=== PATIENT | male | born 1975 | race Caucasian/White ===

== ENCOUNTER → 2021-10-12 02:01 | Outpatient (CLI) | payer BC, SELFPAY ==
[2021-10-12 20:49] LABS: SARS-CoV-2 RNA PCR Positive
== END ==
PROVIDERS: PCP Family Medicine; Visit Provider Family Medicine
DX: U07.1 COVID-19 (principal)
CPT/HCPCS: C9803; U0003; U0005

== ENCOUNTER 2022-02-21 08:26 | Outpatient (CLI) | payer OTHER, SELFPAY ==
[2022-02-21 09:58] LABS: Alanine Aminotransferase 20 U/L (6-50); Albumin Level 4.2 g/dL (3.5-5.1); Alkaline Phosphatase 60 U/L (38-126); Anion Gap 4 mmol/L (8-16); Aspartate Amino Transferase 24 U/L (17-59); Bilirubin,Total 0.4 mg/dL (0.2-1.3); Blood Urea Nitrogen 17 mg/dL (9-20); Calcium 8.5 mg/dL (8.4-10.2); Carbon Dioxide 29 mmol/L (22-30); Chloride 107 mmol/L (98-107); Cholesterol 190 mg/dL (0-200); Estimated Glomerular Filt Rate > 60; Glucose 100 mg/dL (65-110); HDL Direct 47 mg/dL; Potassium 3.9 mmol/L (3.4-5.0); Sodium 140 mmol/L (137-145); Triglycerides 77 mg/dL (<150)
[2022-02-21 10:09] LABS: LDL Cholesterol Direct 100 mg/dL
== END 2022-02-21 08:27 | disposition home or self-care (01) ==
LOC: ANHLAB 08:30
PROVIDERS: PCP Family Medicine; Visit Provider Family Medicine
DX: E66.3 Overweight (principal); E78.5 Hyperlipidemia, unspecified
CPT/HCPCS: 36415; 80053; 80061

== ENCOUNTER 2022-08-13 08:23 | Emergency (ER) | payer OTHER, SELFPAY ==
--- NOTE | 2022-08-13 08:24 | ED.SKABFB ---
HPI - Skin/Abscess/Foreign Bdy General Chief complaint: Skin/Abscess/Foreign Body Stated complaint: RASH Time Seen by Provider: 08/13/22 08:24 Source: patient and RN notes reviewed History of Present Illness HPI narrative: Patient is a 47-year-old male who presents to urgent care with complaints of a rash to the chin, outside of the right ear, in the right abdomen. Patient states he noticed it on his face approximately 2-3 weeks ago it is and was not taking precautions such as changing tells until he suspected that it may be impetigo. 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 Patient has not tried anything [id number] for the rash. No other acute complaints. No acute distress noted. Patient aware of the plan of care. Some parts of this dictation were generated by voice recognition software and may contain typographical and/or grammatical inaccuracies. Related Data Allergies Allergy/AdvReac Type Severity Reaction Status Date / Time No Known Allergies Allergy Verified 08/13/22 08:44 Review of Systems Review of Systems: CONSTITUTIONAL: Denies fever, chills, or sweats. EYES: Denies visual changes, redness, or discharge. ENT: Denies rhinorrhea, congestion, sore throat, or otalgia. CARDIOVASCULAR: Denies chest pain, palpitations, or edema. RESPIRATORY: Denies cough or dyspnea. GASTROINTESTINAL: Denies abdominal pain, nausea, vomiting, or diarrhea. GENITOURINARY: Denies dysuria or hematuria. SKIN: Reports an itchy rash to the chin, to the right ear and to the right abdomen MUSCULOSKELETAL: Denies back pain, joint pain, or myalgia. NEUROLOGIC: Denies headache, numbness, or weakness. All other systems reviewed are negative, except as documented in HPI. [facility] Past Medical History Medical History History of broken nose (~1985) Surgical History Surgical History H/O knee surgery (~1983) [place] teeth extracted (~1998) Family History Family History Sibling Obesity Social History Social History Alcohol intake: current Drinks per week: 5 Comments At the time of my signature, I reviewed and agree with the nursing past medical, surgical, social, and family history. There is no relevant family history pertinent to the patient complaint. Exam Narrative: GENERAL: This is a well-nourished, well-developed patient, in no apparent distress. HEAD: normocephalic, atraumatic. EYES: PERRL. Sclera clear/white. Vision is grossly intact. EARS: External ears normal, draining vesicular/crusted dermatitis consistent with impetigo to the tragus of the right. Auditory canals clear and without drainage, TMs normal without perforation. Hearing grossly intact. NOSE: External nose normal with no obvious nasal discharge, nares without redness, no rhinorrhea. THROAT: Mucous membranes moist NECK: Neck supple CARDIOVASCULAR: Regular rate and rhythm without murmurs, gallops, or rubs. RESPIRATORY: Clear to auscultation. Breath sounds equal bilaterally. No wheezes, rales, or rhonchi. SKIN: Draining vesicular/crusted dermatitis consistent with impetigo to the chin. Circular blanching center dermatitis noted to the right abdomen more consistent with tinea NEURO: awake, alert, and oriented to person, place and time. There were no obvious focal neurologic abnormalities. EXTREMITIES: No clubbing, cyanosis, or edema. Course Course Level of Care: Express Care Visit Vital Signs Vital signs: Vital Signs Temperature 98.9 F 08/13/22 09:04 Pulse Rate 79 08/13/22 09:04 Respiratory Rate 16 08/13/22 09:04 Blood Pressure 173/94 H 08/13/22 09:04 Pulse Oximetry 99 08/13/22 09:04 Temperature 98.9 F 08/13/22 09:04 Pulse Rate 79 08/13/22 09:04 Respiratory Rate
[2022-08-13 09:04] VITALS: BP 173/94; PULSE 79; RESP 16; TEMP 37.2; O2SAT 99
== END 2022-08-13 08:58 | disposition home or self-care (01) ==
PROVIDERS: Emergency Provider Nurse Practitioner Family; PCP Family Medicine
DX: L01.00 Impetigo, unspecified (principal)
CPT/HCPCS: 99213; G0463

== ENCOUNTER 2022-10-08 11:58 | Emergency (ER) | payer OTHER, SELFPAY ==
[2022-10-08 12:31] VITALS: BP 156/97; PULSE 104; RESP 16; TEMP 37; O2SAT 97
--- NOTE | 2022-10-08 13:02 | ED.WOUNDLAC ---
HPI - Wound/Laceration General Chief Complaint: Wound/Laceration Stated Complaint: FINGERTIP LACERATION Time Seen by Provider: 10/08/22 12:40 Source: patient Mode of arrival: ambulatory Limitations: no limitations History of Present Illness HPI narrative: Remington is a 47-year-old male patient presenting to clinic today with complaints of left 5th finger tip avulsion. He reports that he was cutting carrots yesterday around 430 and cut his finger. States that will not quit bleeding. Tetanus is up-to-date per patient Related Data Home Medications Medication Instructions Recorded Confirmed No Home Medications 10/08/22 10/08/22 Allergies Allergy/AdvReac Type Severity Reaction Status Date / Time No Known Allergies Allergy Verified 10/08/22 12:54 Review of Systems Review of Systems: Pertinent positives per HPI. Patient denies any fever, chills, rash, headache, visual changes, dizziness, cough, runny nose, sore throat, shortness of breath, chest pain, palpitations, nausea, vomiting, diarrhea, constipation, abdominal pain, or any urinary issues. [facility] Past Medical History Medical History History of broken nose (~1985) Surgical History Surgical History H/O knee surgery (~1983) [place] teeth extracted (~1998) Family History Family History Sibling Obesity Social History Social History Smoking status: Never smoker Alcohol intake: current Drinks per week: 5 Lack of Transportation: No Lack of Food: Never True Current Housing: I Have Housing Concerned About Future Housing: No Difficulty Paying Gas/Electric Bills: No Difficulty Paying for Meds: No Currently Unemployed: No Education: Master's Degree or Higher Difficulty w/ Childcare or Family Care: No Comments At the time of my signature, I reviewed and agree with the nursing past medical, surgical, social, and family history. There is no relevant family history pertinent to the patient complaint. Exam Narrative: General: Well-developed, well nourished, in no apparent distress Head: Normocephalic, atraumatic. Cardio: Regular rate and rhythm, s1 and s2 normal, no murmur appreciated. Resp: Clear to auscultation bilaterally, no rhonchi, rales, wheezing or rubs. Integumentary: [place], warm, and dry, skin avulsion to the distal left 5th finger. Wound was cleansed with primary derm and surgicel was applied to the wound. Bleeding controlled Course Course Emergency Course: Portions of this record may have been created with voice recognition software. Level of Care: Express Care Visit Vital Signs Vital signs: Vital Signs Temperature 37.0 C 10/08/22 12:31 Pulse Rate 104 H 10/08/22 12:31 Respiratory Rate 16 10/08/22 12:31 Blood Pressure 156/97 H 10/08/22 12:31 Pulse Oximetry 97 10/08/22 12:31 Temperature 37.0 C 10/08/22 12:31 Pulse Rate 104 H 10/08/22 12:31 Respiratory Rate 16 10/08/22 12:31 Blood Pressure 156/97 H 10/08/22 12:31 Pulse Oximetry 97 10/08/22 12:31 Vital signs reviewed MDM - Wound/Laceration MDM Narrative Medical decision making narrative: At the time of visit patient is resting comfortably on exam table. Patient has a skin avulsion to the left 5th distal finger. Wound was cleansed with from it arm and Surgicel was placed. 4 x 4 and tube gauze was applied over the wound. Supportive measures were discussed with the patient he voiced understanding discharge instructions agrees to treatment plan. Differential Diagnosis Differential diagnosis: Likely laceration and avulsion of skin Discharge Plan Discharge Clinical Impression: Avulsion of skin of finger Patient Disposition: Home, Self-Care Condition: Stable Instructions: Antibiotic
== END 2022-10-08 13:40 | disposition home or self-care (01) ==
PROVIDERS: Emergency Provider Nurse Practitioner Family; PCP Family Medicine
DX: S61.207A Unspecified open wound of left little finger without damage to nail, initial encounter (principal); W45.8XXA Other foreign body or object entering through skin, initial encounter; Y93.G1 Activity, food preparation and clean up; E78.00 Pure hypercholesterolemia, unspecified; K21.9 Gastro-esophageal reflux disease without esophagitis
CPT/HCPCS: 99212; G0463

== ENCOUNTER 2022-11-20 00:36 | Day surgery (SDC) | payer OTHER, SELFPAY ==
[2022-11-09 11:45] VITALS: BMI 26.6
[2022-11-20 08:04] VITALS: BP 130/95; PULSE 80; RESP 20; TEMP 36.6; O2SAT 98; BMI 26.6
[2022-11-20] MEDS: LACTATED RINGERS 1,000 ML 150 ML IV CONT (08:10)
--- NOTE | 2022-11-20 08:38 | P.PNAN_ITS ---
Anes - Initial Pre Proc Eval Procedure: Operation Date: 11/20/22 09:00 Proposed Procedures p Screening Colonoscopy - Elliott Ramesh MD Date/Time: 11/20/22 08:38 Surgeon: Elliott Ramesh MD Pre Op Diagnosis: neoplasm screening Patient Data Age: 47 Gender: M Height: 1.8 m Weight: 86.7 kg Last Vital Signs Temp 97.8 F 11/20/22 08:04 Pulse 80 11/20/22 08:04 Resp 20 11/20/22 08:04 BP 130/95 H 11/20/22 08:04 Pulse Ox 98 11/20/22 08:04 O2 Del Method Room Air 11/20/22 08:04 Allergies Allergy/AdvReac Type Severity Reaction Status Date / Time No Known Allergies Allergy Verified 11/20/22 08:03 Home Medications Medication Instructions Recorded Confirmed Type sodium,potassium,mag sulfates 17.5 See Rx Instructions .Route 11/15/22 Rx gram-3.13 gram-1.6 gram oral soln .COMPLEX #354 mL (Suprep Bowel Prep Kit) Patient hx anesthesia problems: none Family hx anesthesia problems: none Results Review: All pre-operative results and documents have been reviewed as part of the pre- operative evaluation. [facility] Past Medical History Medical History History of broken nose (~1985) Surgical History Surgical History H/O knee surgery (~1983) [place] teeth extracted (~1998) Family History Family History Sibling Obesity Social History Social History Smoking status: Never smoker Alcohol intake: current Drinks per week: 12 Alcohol use details: BEER AND WINE Substance use: never Substance use type: does not use Lack of Transportation: No Lack of Food: Never True Current Housing: I Have Housing Concerned About Future Housing: No Difficulty Paying Gas/Electric Bills: No Difficulty Paying for Meds: No Currently Unemployed: No Education: Master's Degree or Higher Difficulty w/ Childcare or Family Care: No Living arrangements: with family Spiritual care concerns: No Anes - Eval Final PreProcedure Day of Procedure 11/20/22 08:38 Patient weight: normal Heart: regular rate and rhythm Lungs: clear to auscultation Airway: Mallampati scale class II Neurological: alert and oriented Last oral intake: >/= 8 hours ASA classification: II Emergent: no Anesthetic plan: proceed Anesthesia type and monitoring: general GIVS and standard monitoring Results Review: All pre-operative results and documents have been reviewed as part of the pre- operative evaluation. Informed Consent: The patient's anesthetic plan and its attendant risks and benefits were discussed with the patient/family/POA. Questions were solicited and answers provided to the satisfaction of the patient/family/POA.
--- NOTE | 2022-11-20 08:41 | PM.HPGS ---
History of Present Illness History of Present Illness Consent: Risks, benefits, and alternatives have been discussed and questions answered. Patient agrees to proceed with procedure. Chief complaint: neoplasm screening Narrative: Remington Mandel is a 47 year old male Presents for screening colonoscopy. Patient's current weight appetite bowel movements are normal. Patient denies abdominal pain. He has had no bleeding. Patient presents today for neoplasia screening colonoscopy. Review of Systems Review of Systems: Review of systems is noncontributory. [facility] Past Medical History Medical History History of broken nose (~1985) Surgical History Surgical History H/O knee surgery (~1983) [place] teeth extracted (~1998) Family History Family History Sibling Obesity Social History Social History Smoking status: Never smoker Alcohol intake: current Drinks per week: 12 Alcohol use details: BEER AND WINE Substance use: never Substance use type: does not use Lack of Transportation: No Lack of Food: Never True Current Housing: I Have Housing Concerned About Future Housing: No Difficulty Paying Gas/Electric Bills: No Difficulty Paying for Meds: No Currently Unemployed: No Education: Master's Degree or Higher Difficulty w/ Childcare or Family Care: No Living arrangements: with family Spiritual care concerns: No Meds Home Medications and Allergies Home Medications Medication Instructions Recorded Confirmed Type sodium,potassium,mag sulfates 17.5 See Rx Instructions .Route 11/15/22 Rx gram-3.13 gram-1.6 gram oral soln .COMPLEX #354 mL (Suprep Bowel Prep Kit) Allergies Allergy/AdvReac Type Severity Reaction Status Date / Time No Known Allergies Allergy Verified 11/20/22 08:03 Vital Signs Vital Signs - 24 hr 11/20/22 08:04 Temperature 97.8 F Pulse Rate 80 Respiratory Rate 20 Blood Pressure 130/95 H Pulse Oximetry 98 Oxygen Delivery Room Air Exam Narrative: Physical exam reveals patient to be alert. Vital signs stable. HEENT exam is unremarkable. Patient anicteric. Lungs are clear to auscultation and percussion. Heart is without murmur or extra sounds. Abdomen bowel sounds are present soft nontender with no organomegaly. Digital external rectal exam is normal. Assessment and Plan Assessment and plan (1) Screening for colon cancer: Code(s): Z12.11 - Encounter for screening for malignant neoplasm of colon Status: Acute Assessment and Plan: Patient presents for neoplasia screening colonoscopy. Further recommendations will be given after endoscopy.
[2022-11-20 09:10] VITALS: BP 110/51; PULSE 81; RESP 27; TEMP 36.6; O2SAT 96
[2022-11-20 09:20] VITALS: BP 116/79; PULSE 86; RESP 23; TEMP 36.6; O2SAT 100
[2022-11-20 09:30] VITALS: BP 125/84; PULSE 65; RESP 23; TEMP 36.6; O2SAT 100
== END 2022-11-20 09:32 | disposition home or self-care (01) ==
PROVIDERS: Visit Provider Internal Medicine Gastroenterology
PROC: 0DJD8ZZ Inspection of Lower Intestinal Tract, Via Natural or Artificial Opening Endoscopic (ICD-10-PCS; CPT 45378; principal; 2022-11-20 09:00)
DX: Z12.11 Encounter for screening for malignant neoplasm of colon (principal); K64.8 Other hemorrhoids
CPT/HCPCS: 45378; J2704; J7120

== ENCOUNTER 2022-12-20 21:36 | Observation (INO) | payer OTHER, SELFPAY ==
--- NOTE | ~2022-12-20 | CT_ITS ---
EXAMINATION: CT abdomen pelvis wo con DATE: 12/22/2022 09:53 INDICATION: Right ureteral stone. TECHNIQUE: Computed tomography (CT) of the abdomen and pelvis was performed without intravenous contr ast. Automated exposure control and iterative reconstruction technique were employed. The dose-length product was 266.97 mGy-cm. COMPARISON: CT abdomen and pelvis 12/20/2022 FINDINGS: The visualized portions of the lung bases demonstrate mild atelectasis. No pleural effusion . The heart size is normal. No pericardial effusion. The liver, gallbladder, spleen, pancreas, adrena l glands, and left kidney are normal. There is mild right hydronephrosis and hydroureter. There is a 4 mm stone in proximal right ureter at L3. There are no dilated loops of bowel. The appendix is jose a l. There are no pathologically enlarged lymph nodes. There is no free intraperitoneal fluid. There ar e chronic bilateral L5 pars defects. There is 4 mm anterolisthesis of L5 on S1. There is severe lower lumbar spondylosis. IMPRESSION: 1. 4 mm stone in proximal right ureter at L3 with mild right hydronephrosis and proximal hydroureter. Reviewed, dictated and finalized at location A.
--- NOTE | ~2022-12-20 | CT_ITS ---
Non-contrast CT scan of the Abdomen and Pelvis Clinical indication: Right flank pain Technique: 2.5 mm axial scans were obtained through the abdomen and pelvis without intravenous or or al contrast. Dose reduction technique was used on this scan by utilizing automated exposure control a nd iterative reconstruction technique. The dose-length product (DLP) was 275.68 mGy-cm. Findings: Images through the lung bases reveal no abnormalities. There is a 7 mm stone in the proximal right ureter, resulting in mild right hydronephrosis. No left r enal or left ureteral stone. No left hydronephrosis. The liver, spleen, pancreas, gallbladder, and adrenals appear normal. There is no aortic aneurysm. There is no evidence of bowel obstruction. Images through the pelvis were performed. There is no evidence of ascites or lymphadenopathy. Urinary bladder unremarkable. Prostate gland and seminal vesicles are unremarkable. Bilateral L5 pars interarticularis defects are present, with 6 mm anterolisthesis of L5 over S1. Impression: 7 mm proximal right ureteral stone with mild right hydronephrosis. Bilateral L5 pars interarticularis defects, with 6 mm anterolisthesis of L5 over S1. Reviewed, dictated and finalized at location . Impression: 7 mm proximal right ureteral stone with mild right hydronephrosis. Bilateral L5 pars interarticularis defects, with 6 mm anterolisthesis of L5 ove r S1.
--- NOTE | ~2022-12-20 | XR_ITS ---
Supine and upright views of the abdomen Clinical history: Right ureteral stone COMPARISON: 12/21/2022 Findings: Bowel gas pattern is nonspecific. No evidence for obstruction or free air. Questionable vis ualization of the ureteral stone projecting over the right transverse process. Osseous structures are intact. Impression: Questionable visualization of right ureteral stone projecting over the right L3 transverse process. Reviewed, dictated and finalized at location . Impression: Questionable visualization of right ureteral stone projecting over the right L3 transverse process.
--- NOTE | ~2022-12-20 | XR_ITS ---
Supine and upright views of the abdomen Clinical history: 7 mm right ureteral stone Findings: Bowel gas pattern is nonspecific. No evidence for obstruction or free air. Possible visuali zation of right ureteral stone or dissecting just superior to the L3 transverse process on the first image. Osseous structures are intact. Impression: Possible visualization of 7 mm right ureteral stone projecting just superior to the right L3 transver se process, as above. Reviewed, dictated and finalized at location M. Impression: Possible visualization of 7 mm right ureteral stone projecting just superior to the right L3 transverse process, as above.
[2022-12-20 21:38] VITALS: BP 170/97; PULSE 65; RESP 16; TEMP 36.2; O2SAT 100
[2022-12-20 22:28] LABS: Basophils Absolute Auto 0.1 K/mm3 (0.0-0.1); Basophils Percent Auto 0.9 % (0.2-1.2); Eosinophils Absolute Auto 0.1 K/mm3 (0-0.3); Eosinophils Percent Auto 1.4 % (0-4.4); Hematocrit 45.9 % (42.0-52.0); Hemoglobin 16.5 g/dL (14.0-18.0); Immature Granulocyte Absolute 0.02 K/mm3 (0.00-0.031); Immature Granulocyte Percent A 0.3 % (0-0.5); Lymphocytes Percent Auto 40.5 % (18.3-44.2); Mean Corpuscular HGB Conc 35.9 g/dl (32-36); Mean Corpuscular Hemoglobin 32.4 pg (26-34); Mean Corpuscular Volume 90.2 fl (80-100); Monocytes Absolute Auto 0.7 K/mm3 (0.1-0.6); Monocytes Percent Auto 9.3 % (2.6-8.5); Neutrophils Absolute Auto 3.6 K/mm3 (1.3-6.7); Neutrophils Percent Auto 47.6 % (45.5-73.1); Platelet Count Result 227 k/mm3 (150-375); Red Blood Count 5.09 M/mm3 (4.6-6.20); Red Cell Distribution Width 11.8 % (11.5-14.5); White Blood Count 7.7 K/mm3 (4.5-10.0)
[2022-12-20 22:37] LABS: Appearance Urine Turbid (Clear); Bacteria Urine None Seen /hpf; Bilirubin Urine Negative (Negative); Blood Urine 3+ (Negative); Color Urine Yellow (Yellow); Glucose Urine UA Negative (Negative); Ketones Urine Trace mg/dL (Negative); Leukocyte Esterase Ur Negative LEU/UL (Negative); Nitrate Urine Negative (Negative); Non Pathogenic Casts 0-2; Protein Urine 1+ mg/dL (Negative); RBC Urine >100 /hpf (0-2); Specific Grav Ur 1.019 (1.001-1.035); Squamous Epithelial Cell Urine None seen /hpf (Few); pH Urine 7.5 (5.0-9.0)
[2022-12-20 22:42] LABS: Add Urine Microscopic? YES
[2022-12-20 22:43] LABS: Alanine Aminotransferase 37 U/L (6-50); Albumin Level 4.6 g/dL (3.5-5.1); Alkaline Phosphatase 60 U/L (38-126); Anion Gap 9 mmol/L (8-16); Aspartate Amino Transferase 31 U/L (17-59); Bilirubin,Total 0.6 mg/dL (0.2-1.3); Blood Urea Nitrogen 17 mg/dL (9-20); Calcium 9.1 mg/dL (8.4-10.2); Carbon Dioxide 27 mmol/L (22-30); Chloride 104 mmol/L (98-107); Estimated CRCL calculation 84 ml/min; Estimated Glomerular Filt Rate > 60; Glucose 139 mg/dL (65-110); Potassium 3.8 mmol/L (3.4-5.0); Sodium 140 mmol/L (137-145)
[2022-12-20] MEDS: MORPHINE SULFATE (*CRX) 4 MG/ML INJ IV PUSH (23:07)
[2022-12-20] MEDS: ONDANSETRON INJ 4 MG/2 ML VIAL IV PUSH (23:07)
[2022-12-20 23:28] VITALS: BP 168/104; O2SAT 99
[2022-12-20 23:29] VITALS: O2SAT 99
[2022-12-20 23:30] VITALS: O2SAT 98
[2022-12-20 23:31] VITALS: BP 161/96; O2SAT 99
[2022-12-20 23:45] VITALS: O2SAT 98
[2022-12-20] MEDS: SODIUM CHLORIDE 0.9% IV 1,000 ML 999 ML IV CONT (23:59)
[2022-12-21] VITALS (41 sets, daily range): BP systolic 115–160; BP diastolic 67–98; PULSE 58–80; RESP 16–18; TEMP 36.6; O2SAT 92–100; BMI 25.8
[2022-12-21] MEDS: ONDANSETRON INJ 4 MG/2 ML VIAL IV PUSH ×2 (00:12→01:46)
[2022-12-21] MEDS: HYDROmorphone HCL INJ (*CRX) 1 MG/ML SYR IV PUSH (00:12)
--- NOTE | 2022-12-21 00:54 | ED.GENADULT ---
HPI - General Adult General Chief complaint: Urogenital-Male <MITZY Gerber Last Filed: 12/21/22 02:17> Stated complaint: bllod in urine, flank pain <MITZY Gerber Last Filed: 12/21/22 02:17> Time Seen by Provider: 12/20/22 22:37 <MITZY Gerber Last Filed: 12/21/22 02:17> Source: patient <MITZY Gerber Last Filed: 12/21/22 02:17> Mode of arrival: ambulatory <MITZY Gerber Last Filed: 12/21/22 02:17> Limitations: no limitations <MITZY Gerber Last Filed: 12/21/22 02:17> History of Present Illness HPI narrative: Patient is a 47 y/o male who presents to the ED with c/o hematuria and R flank pain. Patient reports having hematuria since Sunday. Denied dysuria or difficulty urinating. He saw his PCP on Sunday and had a UA drawn in the office which was negative for infection. He was given a referral to Urology. Patient states that hematuria has persisted. Tonight around 7 PM, he developed a dull pain in his right flank/mid back. Pain radiates around to his right lower abdomen. The pain became more severe around 9 PM and was not improved with Advil, which prompted his presentation. Patient also reports having nausea, but denies vomiting. Denies fever, diarrhea, constipation. Denies history of kidney stones. <MITZY Gerber Last Filed: 12/21/22 02:17> Related Data Home medications: Home Medications Medication Instructions Recorded Confirmed valacyclovir 1 gram tablet 1,000 mg PO Q12H 12/18/22 12/21/22 (Valtrex) loratadine 10 mg tablet (Claritin) 10 mg PO DAILY 12/21/22 12/21/22 <MITZY Gerber Last Filed: 12/21/22 02:17> Allergies/adverse reactions: Allergies Allergy/AdvReac Type Severity Reaction Status Date / Time No Known Allergies Allergy Verified 12/20/22 21:44 <Soledad Gentile PA-C - Last Filed: 12/21/22 02:17> Review of Systems Review of Systems: CONSTITUTIONAL: Denies fever, chills, or sweats. CARDIOVASCULAR: Denies chest pain. RESPIRATORY: Denies dyspnea. GASTROINTESTINAL: See HPI. GENITOURINARY: See HPI. SKIN: Denies rash or itching. MUSCULOSKELETAL: See HPI. <MITZY Gerber Last Filed: 12/21/22 02:17> All systems reviewed & are unremarkable except as noted in HPI and below <MITZY Gerber Last Filed: 12/21/22 02:17> [facility] Past Medical History Medical History: Medical History History of broken nose (~1985) <MITZY Gerber Last Filed: 12/21/22 02:17> Surgical History Surgical History: Surgical History H/O knee surgery (~1983) [place] teeth extracted (~1998) <MITZY Gerber Last Filed: 12/21/22 02:17> Family History Family History: Family History Sibling Obesity <MITZY Gerber Last Filed: 12/21/22 02:17> Social History Social History: Social History Social History: Caffeine-none Smoking status: Never smoker Alcohol intake: current Drinks per week: 12 Alcohol use details: BEER AND WINE Substance use: never Substance use type: does not use Lack of Transportation: No Lack of Food: Never True Current Housing: I Have Housing Concerned About Future Housing: No Difficulty Paying Gas/Electric Bills: No Difficulty Paying for Meds: No Currently Unemployed: No Education: Master's Degree or Higher Difficulty w/ Childcare or Family Care: No Living arrangements: with family Spiritual care concerns: No <Soledad Gentile PA-C - Last Filed: 12/21/22 02:17> Exam Narrative: GENERAL: Uncomfortable appearing, well-nourished, non-toxic, in mild acute distress due to pain.
[2022-12-21] MEDS: SODIUM CHLORIDE 0.9% IV 1,000 ML 999 ML IV CONT (01:46)
--- NOTE | 2022-12-21 02:00 | PM.IMHP ---
H&P: HPI History of Present Illness Date/Time: 12/21/22 02:00 Chief Complaint: 47 years old male with no significant past medical history presented to the ER complaining of hematuria started 3 days ago persistent no aggravating or relieving factor patient also complained of abdominal pain started today on the right side radiating to the right flank severe did not improve with Advil patient presented to the ER CT scan of the abdomen was done showed right-sided obstructive uropathy with ureteral stone pending CT scan final report urology was consulted patient will be treated with IV antibiotic IV fluid pain control Review of Systems Review of Systems: Twelve system review was negative except [facility] Past Medical History Medical History History of broken nose (~1985) Surgical History Surgical History H/O knee surgery (~1983) [place] teeth extracted (~1998) Family History Family History Sibling Obesity Social History Social History Social History: Caffeine-none Smoking status: Never smoker Alcohol intake: current Drinks per week: 12 Alcohol use details: BEER AND WINE Substance use: never Substance use type: does not use Lack of Transportation: No Lack of Food: Never True Current Housing: I Have Housing Concerned About Future Housing: No Difficulty Paying Gas/Electric Bills: No Difficulty Paying for Meds: No Currently Unemployed: No Education: Master's Degree or Higher Difficulty w/ Childcare or Family Care: No Living arrangements: with family Spiritual care concerns: No Meds Home Medications and Allergies Home Medications Medication Instructions Recorded Confirmed Type ciprofloxacin HCl 500 mg tablet 500 mg PO Q12H #14 tabs 12/18/22 12/18/22 Rx valacyclovir 1 gram tablet 1,000 mg PO Q12H PRN 12/18/22 12/18/22 History (Valtrex) Allergies Allergy/AdvReac Type Severity Reaction Status Date / Time No Known Allergies Allergy Verified 12/20/22 21:44 Vital Signs Vital Signs - 24 hr 12/20/22 21:38 12/20/22 23:28 12/20/22 23:29 Temperature 97.2 F L Pulse Rate 65 Respiratory Rate 16 Blood Pressure 170/97 H 168/104 H Pulse Oximetry 100 99 99 Oxygen Delivery Room Air 12/20/22 23:30 12/20/22 23:31 12/20/22 23:45 Temperature Pulse Rate Respiratory Rate Blood Pressure 161/96 H Pulse Oximetry 98 99 98 Oxygen Delivery 12/21/22 00:00 12/21/22 00:01 12/21/22 00:15 Temperature Pulse Rate Respiratory Rate Blood Pressure 160/92 H Pulse Oximetry 98 100 99 Oxygen Delivery 12/21/22 00:30 12/21/22 00:31 12/21/22 00:45 Temperature Pulse Rate Respiratory Rate Blood Pressure 143/98 H Pulse Oximetry 97 97 98 Oxygen Delivery 12/21/22 01:00 12/21/22 01:01 12/21/22 01:15 Temperature Pulse Rate Respiratory Rate Blood Pressure 139/94 H Pulse Oximetry 99 98 97 Oxygen Delivery Exam Narrative: GENERAL: Well appearing, well-nourished, non-toxic, in no acute distress. HEAD: Normocephalic, atraumatic. NECK: Supple. No adenopathy, no masses. RESPIRATORY: Airway patent, respirations nonlabored. Clear to auscultation bilaterally, no rales, rhonchi, wheezing. CARDIOVASCULAR: Regular rate and rhythm without murmurs, rubs, or gallops. Peripheral pulses 2+ and equal bilaterally. ABDOMINAL: Soft, nontender, nondistended, no hepatosplenomegaly. Normoactive BS. MUSCULOSKELETAL: Moves all extremities. Strength/ROM intact without gross deformities or TTP. No edema. No calf tenderness. No chest wall tenderness palpation. SKIN: Warm, dry, normal color. No rashes. NEURO: A&O X3. Speech clear. Cranial nerves II-XII grossly intact. Steady gait. No ataxic movements.
[2022-12-21 02:24] LABS: Basophils Absolute Auto 0.1 K/mm3 (0.0-0.1); Basophils Percent Auto 0.5 % (0.2-1.2); Eosinophils Percent Auto 0.1 % (0-4.4); Hematocrit 41.5 % (42.0-52.0); Hemoglobin 15.1 g/dL (14.0-18.0); Immature Granulocyte Absolute 0.03 K/mm3 (0.00-0.031); Immature Granulocyte Percent A 0.3 % (0-0.5); Lymphocytes Absolute Auto 0.79 K/mm3 (0.9-3.2); Mean Corpuscular HGB Conc 36.4 g/dl (32-36); Mean Corpuscular Hemoglobin 32.3 pg (26-34); Mean Corpuscular Volume 88.9 fl (80-100); Mean Platelet Volume 10.2 fl (7.4-10.4); Monocytes Absolute Auto 0.5 K/mm3 (0.1-0.6); Monocytes Percent Auto 5.4 % (2.6-8.5); Neutrophils Absolute Auto 8.4 K/mm3 (1.3-6.7); Neutrophils Percent Auto 85.7 % (45.5-73.1); Platelet Count Result 203 k/mm3 (150-375); Red Blood Count 4.67 M/mm3 (4.6-6.20); Red Cell Distribution Width 11.7 % (11.5-14.5); White Blood Count 9.9 K/mm3 (4.5-10.0)
[2022-12-21 02:42] LABS: Alanine Aminotransferase 32 U/L (6-50); Alkaline Phosphatase 55 U/L (38-126); Anion Gap 6 mmol/L (8-16); Aspartate Amino Transferase 29 U/L (17-59); Bilirubin,Total 0.8 mg/dL (0.2-1.3); Blood Urea Nitrogen 15 mg/dL (9-20); Calcium 8.2 mg/dL (8.4-10.2); Carbon Dioxide 23 mmol/L (22-30); Chloride 109 mmol/L (98-107); Estimated CRCL calculation 84 ml/min; Estimated Glomerular Filt Rate > 60; Glucose 123 mg/dL (65-110); Potassium 3.7 mmol/L (3.4-5.0); Sodium 138 mmol/L (137-145)
[2022-12-21] MEDS: SODIUM CHLORIDE 0.9% IV 1,000 ML 100 ML IV CONT ×2 (09:30→21:29)
[2022-12-21] MEDS: FAMOTIDINE 20 MG TABLET PO ×2 (11:14→21:29)
--- NOTE | 2022-12-21 12:41 | WPDURCON ---
Assessment and Plan Assessment and plan (1) Calculus of proximal right ureter: Code(s): N20.1 - Calculus of ureter Status: Acute Assessment and Plan: Plan to keep overnight for pain control. Obtain Consent for Right ESWL with Dr. Boone. Keep NPO after midnight. (2) Gross hematuria: Code(s): R31.0 - Gross hematuria Status: Acute Assessment and Plan: Likely secondary to stone, however a urine culture is pending. Urology Consult Note HPI Date Seen: 12/21/22 Time Seen: 09:00 Requesting Physician: Wood Luke MD Primary Care Provider: Letty Givens DO Consult Narrative Reason for consult: Right UPJ Stone Narrative: Remington Mandel is a 47 year old male who presented to the ER early this morning for acute onset of right flank pain and gross hematuria that began on Sunday and had worsened over the past few days. He went to his PCP on Sunday and they ruled out a UTI with a UA and got a referral for him to see our group. We were set to see him in the office today, however d/t the severity of the pain he was admitted since finding a 7mm right UPJ stone on CT early this morning. The stone is also visible on KUB and a urine culture is pending. The patient denies a history of kidney stones, dysuria, fever, chills, frequency or urgency to urinate. His WBC is 9.9, creatinine is 1.00 and UA shows blood but isn't suspicious for a UTI. Review of Systems Cardiovascular: Cardiovascular: Denies chest pain Respiratory: Respiratory: Reports no additional respiratory complaints Gastrointestinal: Gastrointestinal: Reports abdominal pain, Denies nausea and Denies vomiting Genitourinary: Genitourinary: Reports hematuria, Denies dysuria, Reports flank pain, Denies urinary frequency, Denies urinary hesitancy, Denies urinary incontinence and Denies urinary urgency PMF Past Medical History Medical History History of broken nose (~1985) Surgical History Surgical History H/O knee surgery (~1983) [place] teeth extracted (~1998) Family History Family History Sibling Obesity Social History Social History Social History: Caffeine-none Smoking status: Never smoker Alcohol intake: current Drinks per week: 12 Alcohol use details: BEER AND WINE Substance use: never Substance use type: does not use Lack of Transportation: No Lack of Food: Never True Current Housing: I Have Housing Concerned About Future Housing: No Difficulty Paying Gas/Electric Bills: No Difficulty Paying for Meds: No Currently Unemployed: No Education: Master's Degree or Higher Difficulty w/ Childcare or Family Care: No Living arrangements: with family Spiritual care concerns: No Meds Home Medications and Allergies Home Medications Medication Instructions Recorded Confirmed Type ciprofloxacin HCl 500 mg tablet 500 mg PO Q12H #14 tabs 12/18/22 12/21/22 Rx valacyclovir 1 gram tablet 1,000 mg PO Q12H 12/18/22 12/21/22 History (Valtrex) loratadine 10 mg tablet (Claritin) 10 mg PO DAILY 12/21/22 12/21/22 History Allergies Allergy/AdvReac Type Severity Reaction Status Date / Time No Known Allergies Allergy Verified 12/20/22 21:44 Vital Signs Vital Signs - 24 hr 12/20/22 21:38 12/20/22 23:28 12/20/22 23:29 Temperature 97.2 F L Pulse Rate 65 Respiratory Rate 16 Blood Pressure 170/97 H 168/104 H Pulse Oximetry 100 99 99 Oxygen Delivery Room Air 12/20/22 23:30 12/20/22 23:31 12/20/22 23:45 Temperature Pulse Rate Respiratory Rate Blood Pressure 161/96 H Pulse Oximetry 98 99 98 Oxygen Delivery 12/21/22 00:00 12/21/22 00:01 12/21/22 00:15 Temperature Pulse Rate Respiratory Rate Blood P
--- NOTE | 2022-12-21 13:37 | PM.IMPN ---
Progress Note: A&P Assessment and Plan (1) Hematuria: Code(s): R31.9 - Hematuria, unspecified Status: Acute Assessment and Plan: Secondary to urolithiasis Monitor Pain control Urology consult HPI-Chief Complaint:hematuria and urinary retention 47 years old male with no significant past medical history presented to the ER complaining of hematuria started 3 days ago persistent no aggravating or relieving factor patient also complained of abdominal pain started today on the right side radiating to the right flank severe did not improve with Advil patient presented to the ER CT scan of the abdomen was done showed right-sided obstructive uropathy with ureteral stone pending CT scan final report urology was consulted patient will be treated with IV antibiotic IV fluid pain control 12/21/2022 interval history: 47-year-old male presented with right flank pain, hematuria and urinary traction is found to have right ureteral stone seen by urologist and plan is to have lithotripsy tomorrow, will continue IV hydration and pain management also there is a concern for UTI and patient is treated with ceftriaxone, will continue present management with IV fluids and pain medication will continue to monitor and further recommendation to follow. (2) Hyperlipemia: Code(s): E78.5 - Hyperlipidemia, unspecified Status: Acute Assessment and Plan: Diet and exercise follow-up with PCP (3) GERD (gastroesophageal reflux disease): Code(s): K21.9 - Gastro-esophageal reflux disease without esophagitis Status: Acute Assessment and Plan: Pepcid (4) Abdominal pain: Code(s): R10.9 - Unspecified abdominal pain Status: Acute Assessment and Plan: Most likely related to obstructive uropathy secondary to urolithiasis Urology consult IV pain control IV fluid IV antibiotics Follow urine culture Subjective Date/time seen: 12/21/22 13:37 HPI-Chief Complaint:hematuria and urinary retention 47 years old male with no significant past medical history presented to the ER complaining of hematuria started 3 days ago persistent no aggravating or relieving factor patient also complained of abdominal pain started today on the right side radiating to the right flank severe did not improve with Advil patient presented to the ER CT scan of the abdomen was done showed right-sided obstructive uropathy with ureteral stone pending CT scan final report urology was consulted patient will be treated with IV antibiotic IV fluid pain control 12/21/2022 interval history: 47-year-old male presented with right flank pain, hematuria and urinary traction is found to have right ureteral stone seen by urologist and plan is to have lithotripsy tomorrow, will continue IV hydration and pain management also there is a concern for UTI and patient is treated with ceftriaxone, will continue present management with IV fluids and pain medication will continue to monitor and further recommendation to follow. Review of Systems Cardiovascular: Cardiovascular: Denies chest pain Respiratory: Respiratory: Reports no additional respiratory complaints Gastrointestinal: Gastrointestinal: Reports abdominal pain, Denies nausea and Denies vomiting Genitourinary: Genitourinary: Reports hematuria, Denies dysuria, Reports flank pain, Denies urinary frequency, Denies urinary hesitancy, Denies urinary incontinence and Denies urinary urgency Exam Narrative: Patient is comfortable, NAD HEENT: eyes are clear and none icteric LUNGS:Normal respiratory effort ABD: not distended Lower extremities: no edema SKIN: nonjaundiced Neuro: grossly intact. Objective Data Vital Signs Vital Signs: Vital Signs - 24 hr 12/20/22 21:38 12/20/22 23:28 12/20/22 23:29 Temperature 97.2 F L Pulse Rate 65 Respiratory Rate 16 Blood Pressure 170/97 H 168/104 H Pulse Oximetry 100 99 99 Oxygen Delivery Room Air 12/20/22 23:30 12/20/22 23:31
[2022-12-22] VITALS (10 sets, daily range): BP systolic 95–147; BP diastolic 62–88; PULSE 51–90; RESP 12–18; TEMP 36–36.2; O2SAT 93–100
[2022-12-22] MEDS: SODIUM CHLORIDE 0.9% IV 1,000 ML 100 ML IV CONT (06:16)
--- NOTE | 2022-12-22 06:55 | WPDHPUPDATE1 ---
History and Physical Update Update Date/Time: 12/22/22 06:55 History and Physical has been reviewed, including an updated exam of the patient. There are NO changes in the patient's condition. Risks, benefits, and alternatives have been discussed and questions answered. Patient agrees to proceed with procedure.
--- NOTE | 2022-12-22 06:58 | WPDHPUPDATE1 ---
History and Physical Update Update Date/Time: 12/22/22 06:58 History and Physical has been reviewed, including an updated exam of the patient. There are NO changes in the patient's condition. Risks, benefits, and alternatives have been discussed and questions answered. Patient agrees to proceed with procedure.
[2022-12-22 07:02] LABS: Basophils Absolute Auto 0.1 K/mm3 (0.0-0.1); Basophils Percent Auto 0.9 % (0.2-1.2); Eosinophils Absolute Auto 0.1 K/mm3 (0-0.3); Hematocrit 41.9 % (42.0-52.0); Hemoglobin 14.4 g/dL (14.0-18.0); Immature Granulocyte Absolute 0.02 K/mm3 (0.00-0.031); Immature Granulocyte Percent A 0.4 % (0-0.5); Lymphocytes Absolute Auto 2.17 K/mm3 (0.9-3.2); Mean Corpuscular HGB Conc 34.4 g/dl (32-36); Mean Corpuscular Hemoglobin 32.2 pg (26-34); Mean Corpuscular Volume 93.7 fl (80-100); Mean Platelet Volume 10.2 fl (7.4-10.4); Monocytes Absolute Auto 0.5 K/mm3 (0.1-0.6); Monocytes Percent Auto 8.8 % (2.6-8.5); Neutrophils Absolute Auto 2.7 K/mm3 (1.3-6.7); Neutrophils Percent Auto 48.9 % (45.5-73.1); Platelet Count Result 160 k/mm3 (150-375); Red Blood Count 4.47 M/mm3 (4.6-6.20); Red Cell Distribution Width 11.9 % (11.5-14.5); White Blood Count 5.6 K/mm3 (4.5-10.0)
[2022-12-22 07:33] LABS: Alanine Aminotransferase 27 U/L (6-50); Albumin Level 3.6 g/dL (3.5-5.1); Alkaline Phosphatase 43 U/L (38-126); Anion Gap 3 mmol/L (8-16); Aspartate Amino Transferase 24 U/L (17-59); Bilirubin,Total 0.8 mg/dL (0.2-1.3); Blood Urea Nitrogen 9 mg/dL (9-20); Calcium 8.2 mg/dL (8.4-10.2); Carbon Dioxide 27 mmol/L (22-30); Chloride 107 mmol/L (98-107); Estimated CRCL calculation 84 ml/min; Estimated Glomerular Filt Rate > 60; Glucose 95 mg/dL (65-110); Potassium 4.2 mmol/L (3.4-5.0); Sodium 137 mmol/L (137-145)
[2022-12-22] MEDS: LACTATED RINGERS 1,000 ML 30 ML IV CONT (09:00)
--- NOTE | 2022-12-22 09:38 | WPDANESEPPF ---
Anes - Initial Pre Proc Eval Procedure: Operation Date: 12/22/22 10:30 Proposed Procedures p Right Extracorporeal Shock Wave Lithotripsy - Christian Boone MD Date/Time: 12/22/22 09:38 Surgeon: Wood Luke MD Pre Op Diagnosis: 7mm r proximal ureteral stone, pain control Patient Data Age: 47 Gender: M Height: 1.8 m Weight: 84 kg Last Vital Signs Temp 36.0 C L 12/22/22 08:54 Pulse 53 L 12/22/22 08:54 Resp 16 12/22/22 08:54 BP 147/88 H 12/22/22 08:54 Pulse Ox 99 12/22/22 08:54 O2 Del Method Room Air 12/22/22 08:54 Allergies Allergy/AdvReac Type Severity Reaction Status Date / Time No Known Allergies Allergy Verified 12/20/22 21:44 Home Medications Medication Instructions Recorded Confirmed Type ciprofloxacin HCl 500 mg tablet 500 mg PO Q12H #14 tabs 12/18/22 12/21/22 Rx valacyclovir 1 gram tablet 1,000 mg PO Q12H 12/18/22 12/21/22 History (Valtrex) loratadine 10 mg tablet (Claritin) 10 mg PO DAILY 12/21/22 12/21/22 History Laboratory Tests 12/22/22 12/22/22 06:47 06:47 WBC 5.6 K/mm3 K/mm3 (4.5-10.0) RBC 4.47 M/mm3 L M/mm3 (4.6-6.20) Hgb 14.4 g/dL g/dL (14.0-18.0) Hct 41.9 % L % (42.0-52.0) MCV 93.7 fl D fl (80-100) MCH 32.2 pg pg (26-34) MCHC 34.4 g/dl g/dl (32-36) RDW 11.9 % % (11.5-14.5) Plt Count 160 k/mm3 k/mm3 (150-375) MPV 10.2 fl fl (7.4-10.4) Immature Gran % (Auto) 0.4 % % (0-0.5) Neut % (Auto) 48.9 % % (45.5-73.1) Lymph % (Auto) 39.0 % % (18.3-44.2) [place] % (Auto) 8.8 % H % (2.6-8.5) Eos % (Auto) 2.0 % % (0-4.4) Baso % (Auto) 0.9 % % (0.2-1.2) Lymph # (Auto) 2.17 K/mm3 K/mm3 (0.9-3.2) [place] # (Auto) 0.5 K/mm3 K/mm3 (0.1-0.6) Eos # (Auto) 0.1 K/mm3 K/mm3 (0-0.3) Baso # (Auto) 0.1 K/mm3 K/mm3 (0.0-0.1) Abs Immat Gran (auto) 0.02 K/mm3 K/mm3 (0.00-0.031) Absolute Neuts (auto) 2.7 K/mm3 K/mm3 (1.3-6.7) Absolute Nucleated RBC 0.0 K/mm3 K/mm3 (0.0-0.012) Nucleated RBC % 0.0 % % (0.0-0.2) Sodium 137 mmol/L mmol/L (137-145) Potassium 4.2 mmol/L mmol/L (3.4-5.0) Chloride 107 mmol/L mmol/L (98-107) Carbon Dioxide 27 mmol/L mmol/L (22-30) Anion Gap 3 mmol/L L mmol/L (8-16) BUN 9 mg/dL D mg/dL (9-20) Creatinine 1.00 mg/dL mg/dL (0.7-1.3) Estim Creat Clear Calc 84 ml/min ml/min Estimated GFR > 60 (59 - ) Glucose 95 mg/dL mg/dL (65-110) Calcium 8.2 mg/dL L mg/dL (8.4-10.2) Total Bilirubin 0.8 mg/dL mg/dL (0.2-1.3) AST 24 U/L U/L (17-59) ALT 27 U/L U/L (6-50) Alkaline Phosphatase 43 U/L U/L (38-126) Total Protein 6.0 g/dL L g/dL (6.3-8.2) Albumin 3.6 g/dL g/dL (3.5-5.1) Patient hx anesthesia problems: post op nausea/vomiting Family hx anesthesia problems: post op nausea/vomiting Results Review: All pre-operative results and documents have been reviewed as part of the pre-operative evaluation. [facility] Past Medical History Medical History History of broken nose (~1985) Surgical History Surgical History H/O knee surgery (~1983) [place] teeth extracted (~1998) Family History Family History Sibling Obesity Social History Social History Social History: Caffeine-none Smoking status: Never smoker Alcohol intake: current Drinks per week: 12 Alcohol use details: BEER AND WINE Substance use: never Substance use type: does not use Lack of Transportation: No Lack of Food: Never True Current Housing: I Have Housing Concerned About Future Housing: N
[2022-12-22] MEDS: SCOPOLAMINE 1.5 MG PATCH TRANSDERM (10:20)
[2022-12-22 11:04] LABS: Prothrombin Time 13.2 Seconds (11.1-14.7)
[2022-12-22 11:05] LABS: Partial Thromboplastin Time 25.8 SECONDS (22.3-36.8)
--- NOTE | 2022-12-22 11:39 | W.PM.PROC2 ---
Procedure Note - Detailed Date of Procedure 12/22/22 Pre-op Diagnosis Right ureteral stone Post-op Diagnosis Same Procedure Performed Right ESWL Surgeon Christian Boone MD Anesthesia General Description of Procedure The patient was brought to the operative suite where he was placed in the supine position on the [place] lithotripsy table. The focal point of the lithotripter was placed at a 7mm right mid-ureteral calculus. A total of 3000 shocks were delivered at a power setting of 5. There appeared to be good fragmentation of the stone. The patient tolerated the procedure well and was taken to the recovery room in good condition. Drains No Packing No Pathology None sent Complications No immediate complications
[2022-12-22] MEDS: fentaNYL CITRATE INJ (*CRX) 100 MCG/2 ML VIAL 25 MCG IV PUSH ×4 (12:46→12:53)
--- NOTE | 2022-12-22 15:44 | PM.DS ---
DS: Admitting Diagnosis Discharge Date 12/22/2022 Admitting Diagnosis Hematuria DS: Discharge Diagnosis Discharge Diagnosis (1) Hematuria: Code(s): R31.9 - Hematuria, unspecified Status: Acute Assessment and Plan: Secondary to urolithiasis Monitor Pain control Urology consult HPI-Chief Complaint:hematuria and urinary retention 47 years old male with no significant past medical history presented to the ER complaining of hematuria started 3 days ago persistent no aggravating or relieving factor patient also complained of abdominal pain started today on the right side radiating to the right flank severe did not improve with Advil patient presented to the ER CT scan of the abdomen was done showed right-sided obstructive uropathy with ureteral stone pending CT scan final report urology was consulted patient will be treated with IV antibiotic IV fluid pain control 12/21/2022 interval history: 47-year-old male presented with right flank pain, hematuria and urinary traction is found to have right ureteral stone seen by urologist and plan is to have lithotripsy tomorrow, will continue IV hydration and pain management also there is a concern for UTI and patient is treated with ceftriaxone, will continue present management with IV fluids and pain medication will continue to monitor and further recommendation to follow. (2) Hyperlipemia: Code(s): E78.5 - Hyperlipidemia, unspecified Status: Acute Assessment and Plan: Diet and exercise follow-up with PCP (3) GERD (gastroesophageal reflux disease): Code(s): K21.9 - Gastro-esophageal reflux disease without esophagitis Status: Acute Assessment and Plan: Pepcid (4) Abdominal pain: Code(s): R10.9 - Unspecified abdominal pain Status: Acute Assessment and Plan: Most likely related to obstructive uropathy secondary to urolithiasis Urology consult IV pain control IV fluid IV antibiotics Follow urine culture DS: Summary Hospital Course Reason for hospitalization: 47 years old male with no significant past medical history presented to the ER complaining of hematuria started 3 days ago persistent no aggravating or relieving factor patient also complained of abdominal pain started today on the right side radiating to the right flank severe did not improve with Advil patient presented to the ER CT scan of the abdomen was done showed right-sided obstructive uropathy with ureteral stone pending CT scan final report urology was consulted patient will be treated with IV antibiotic IV fluid pain control Hospital Course: 47-year-old male presented with right flank pain,? hematuria and urinary traction is found to have right ureteral stone seen by urologist and plan is to have lithotripsy tomorrow, will continue IV hydration and pain management also there is a concern for UTI and patient is treated with ceftriaxone, will continue present management with IV fluids and pain medication will continue to monitor and further recommendation to follow. Patient had lithotripsy, clinically stable will discharge the patient today Patient to follow discharge care instruction from his urologist and follow up as scheduled, patient to follow up with his primary care provider as soon as possible, patient is instructed if any symptoms worsen to go to nearest ER Time Spent with Patient Time attestation: Total time spent providing and/or coordinating discharge services: Exam Narrative: Patient is comfortable, NAD HEENT: eyes are clear and none icteric LUNGS:Normal respiratory effort ABD: not distended Lower extremities: no edema SKIN: nonjaundiced Neuro: grossly intact. DS: Data Data Completed and Pending Labs on day of discharge: Labs from last 24 hours 12/22/22 12/22/22 12/22/22 10:35 06:47 06:47 WBC 5.6 RBC 4.47 L Hgb 14.4 Hct 41.9 L MCV 93.7 D MCH 32.2 MCHC 34.4 RDW 11.9 Plt Count 160 MPV 10.
== END 2022-12-22 15:45 | disposition home or self-care (01) ==
LOC: ANHED 12-21 02:17 → ANH3MEDSUR 12-21 09:22
PROVIDERS: Emergency Medicine; Urology; Admitting Provider Internal Medicine; Emergency Provider Physician Assistant; PCP Family Medicine; Visit Provider Family Medicine
PROC: (CPT 50590; principal; 2022-12-22 10:30)
DX: N13.2 Hydronephrosis with renal and ureteral calculous obstruction (principal); R31.0 Gross hematuria; E78.5 Hyperlipidemia, unspecified; K21.9 Gastro-esophageal reflux disease without esophagitis; R16.2 Hepatomegaly with splenomegaly, not elsewhere classified; M43.17 Spondylolisthesis, lumbosacral region; F10.90 Alcohol use, unspecified, uncomplicated; Z79.899 Other long term (current) drug therapy
CPT/HCPCS: 50590; 36415; 74018; 74176; 80053; 81001; 84145; 85025; 85610; 85730; 87086; 96361; 96365; 96374; 96375; 96376; 99285; A9270; G0378; J0696; J1100; J1170; J2250; J2270; J2405; J2704; J3010; J7030; J7120

== ENCOUNTER 2023-01-09 09:26 | Outpatient (CLI) | payer OTHER, SELFPAY ==
--- NOTE | ~2023-01-09 | XR_ITS ---
EXAMINATION: XR abdomen/kub 1V INDICATION: History of lithotripsy TECHNIQUE: Supine views of the abdomen were obtained on 2 radiographs. COMPARISON: 12/22/2022 FINDINGS: No urolithiasis is identified. The bowel gas pattern is normal. There are phleboliths of th e right pelvis. There is mild osteoarthritis of the hips. IMPRESSION: 1. No urolithiasis identified. Reviewed, dictated and finalized at location L.
== END 2023-01-09 09:27 | disposition home or self-care (01) ==
PROVIDERS: PCP Family Medicine; Visit Provider Urology
DX: N20.0 Calculus of kidney (principal)
CPT/HCPCS: 74018